=== PATIENT | female | born 1975 | race Caucasian/White ===

== ENCOUNTER → 2021-06-07 | Day surgery (SDC) | payer BC ==
[2021-06-06 11:12] LABS: BASOPHILS # (AUTO) 0.1 (0.0-0.1); BASOPHILS % 0.9 % (0.0-1.0); EOSINOPHILS # (AUTO) 0.1 (0.0-0.4); EOSINOPHILS % 2.4 % (0.0-6.0); HEMATOCRIT 36.2 % (34.2-44.1); HEMOGLOBIN 12.2 g/dL (12.0-16.0); LYMPHOCYTES # (AUTO) 2.3 (1.0-3.2); LYMPHOCYTES % 43.6 % (18.0-39.1); MEAN CORPUSCULAR HEMOGLOBIN 29.5 pg (28-32); MEAN CORPUSCULAR HGB CONC 33.7 g/dL (31-35); MEAN CORPUSCULAR VOLUME 87.4 fL (81-99); MONOCYTES # (AUTO) 0.4 (0.2-0.8); NEUTROPHILS # (AUTO) 2.4 (2.1-6.9); NEUTROPHILS % 44.7 % (38.7-80.0); PLATELET COUNT 193 x10e3/uL (140-360); RED BLOOD COUNT 4.14 x10e6/uL (3.6-5.1)
[~2021-06-07] MED LIST: AMITRIPTYLINE H25 MG PO; ATIVAN0.5 MG PO; CELEXA40 MG PO; CYMBALTA30 MG PO; FENTANYL CITRATE/PF 100MCG/2 ML INJ ONE; HYDROCODON-ACE1 EA12 PO; HYOSCYAMINE SULFATE 0.5 MG/ML INJ ONE; LIDOCAINE HCL 2% LOCAL INJ 5 ML SDV VIAL INJ ONE; LIDODERM PATCH1 EA TOP; LYRICA100 MG PO; LYRICA75 MG PO; METOPROLOL SUCC50 MG PO; MIACALCIN4 ML INH; MIDAZOLAM HCL 2 MG/2 ML VIAL ONE; MINIPRESS2 MG PO; PERIACTIN4 MG PO; PROPOFOL IV EMULSION 10 MG/ML 20 ML VIAL ONE; SEROQUEL100 MG PO; TIZANIDINE HCL4 M1 PO; TRINTELLIX PO; ULTRAM50 MG PO; VYVANSE30 MG PO; Z.0.AMBIEN10 MG PO; Z.0.ATIVAN1 MG PO; Z.0.BENTYL20 MG PO; Z.0.FOLIC ACID1 MG PO; Z.0.NORCO 7.5-3251 E PO; Z.0.PROTONIX40 MG PO; Z.0.VOLTAREN100 GM; Z.0.ZOFRAN8 MG PO; Z.1.METHOTREXATE2.5 PO; ZETIA10 MG PO; [UNRECOGNIZED DRUG - OTHER] IM
[2021-06-07 11:35] VITALS: BP 112/72
[2021-06-07 11:40] LABS: WBC,FECAL (FECAL LACTOFERRIN) NEGATIVE (NEGATIVE)
[2021-06-07 14:16] LABS: C DIFFICILE TOXIN A&B AMP PROB NEGATIVE (NEGATIVE)
[2021-06-11 06:11] LABS: ENDOMYSIAL ANTIBODIES, IGA Negative (Negative)
== END | disposition home or self-care (01) ==
LOC: OR 08:36
PROVIDERS: ATTEND Internal Medicine Gastroenterology
DX: K22.10 Ulcer of esophagus without bleeding (principal); K63.5 Polyp of colon; K29.70 Gastritis, unspecified, without bleeding; K57.30 Diverticulosis of large intestine without perforation or abscess without bleeding; K62.89 Other specified diseases of anus and rectum; K21.9 Gastro-esophageal reflux disease without esophagitis; K31.A0 Gastric intestinal metaplasia, unspecified; M06.9 Rheumatoid arthritis, unspecified; G89.29 Other chronic pain; M81.0 Age-related osteoporosis without current pathological fracture; R56.9 Unspecified convulsions; F41.9 Anxiety disorder, unspecified; F32.A Depression, unspecified; Z88.6 Allergy status to analgesic agent; Z88.1 Allergy status to other antibiotic agents; Z88.8 Allergy status to other drugs, medicaments and biological substances; Z01.812 Encounter for preprocedural laboratory examination; Z20.822 Contact with and (suspected) exposure to COVID-19; Z79.899 Other long term (current) drug therapy; Z68.36 Body mass index [BMI] 36.0-36.9, adult
CPT/HCPCS: 36415; 43239; 43450; 45380; 81025; 82784; 83516; 83630; 83993; 85025; 86256; 87045; 87177; 87328; 87493; C9113; J1980; J2001; J2250; J2704; J3010; U0002; 45378

== ENCOUNTER → 2022-02-14 | Outpatient (CLI) | payer BC ==
[~2022-02-14] MED LIST changes: -FENTANYL CITRATE/PF 100MCG/2 ML INJ ONE; -HYOSCYAMINE SULFATE 0.5 MG/ML INJ ONE; -LIDOCAINE HCL 2% LOCAL INJ 5 ML SDV VIAL INJ ONE; -MIDAZOLAM HCL 2 MG/2 ML VIAL ONE; -PROPOFOL IV EMULSION 10 MG/ML 20 ML VIAL ONE
== END ==
LOC: US 07:21
PROVIDERS: ATTEND Nurse Practitioner Adult Health
DX: R32 Unspecified urinary incontinence (principal)
CPT/HCPCS: 76770; 76857

== ENCOUNTER 2024-05-22 23:13 | Inpatient (IN) | payer BC ==
[~2024-05-22] VITALS: Ht 157.5 cm; Wt 83.9 kg
[2024-05-22 23:10] VITALS: BP 156/106; PULSE 134; RESP 20; TEMP 97.5; O2SAT 99
[~2024-05-22 23:13] MED LIST changes: +FEROSUL325 MG PO; +PANTOPRAZOLE SO40 MG PO; +ceftin PO
[2024-05-22 23:40] VITALS: BP 156/106; PULSE 134; RESP 20; TEMP 97.5; O2SAT 99
[2024-05-22] MEDS: Morphine 4mg INJECTION 4 MG/ML INJ IV PRN (23:55)
[2024-05-22] MEDS: ONDANSETRON HCL INJ 2MG/ML 2ML 2 MG/ML VIAL IV PRN (23:55)
[2024-05-22] MEDS: SODIUM CHLORIDE 0.9% 1000ML 1,000 ML IV SCH (23:55)
[2024-05-23] MEDS ORDERED: SUMATRIPTAN SUC25 MG PO (01:05)
[2024-05-23] MEDS ORDERED: JARDIANCE10 MG PO (01:05)
[2024-05-23] MEDS ORDERED: FENOFIBRATE134 MG PO (01:27)
[2024-05-23] MEDS ORDERED: TIZANIDINE HCL4 MG PO (01:27)
[2024-05-23] MEDS ORDERED: FARXIGA10 MG PO (01:27)
[2024-05-23] MEDS ORDERED: ATORVASTATIN CA20 MG PO (01:27)
[2024-05-23] MEDS ORDERED: HYDROXYCHLOROQ200 MG PO (01:27)
[2024-05-23] MEDS ORDERED: METFORMIN HCL1000 MG PO (01:27)
[2024-05-23] MEDS ORDERED: ZYPREXA5 MG PO (01:27)
[2024-05-23] MEDS ORDERED: FOLIC ACID0.4 MG PO (01:27)
[2024-05-23] MEDS ORDERED: AIMOVIG AU140 MG/1 M INJ (01:41)
[2024-05-23] MEDS ORDERED: HYDROXYZINE HCL25 MG PO (01:41)
[2024-05-23] MEDS ORDERED: METHOTREXATE2.5 MG PO (01:41)
[2024-05-23] MEDS: LACTATED RINGER'S 1,000 ML INJ SCH (01:46)
[2024-05-23 05:50] LABS: BASOPHILS # (AUTO) 0.1 (0.0-0.1); BASOPHILS % 0.5 % (0.0-1.0); EOSINOPHILS # (AUTO) 0.1 (0.0-0.4); EOSINOPHILS % 1.3 % (0.0-6.0); HEMATOCRIT 33.5 % (34.2-44.1); HEMOGLOBIN 10.6 g/dL (12.0-16.0); LYMPHOCYTES # (AUTO) 2.8 (1.0-3.2); LYMPHOCYTES % 27.8 % (18.0-39.1); MEAN CORPUSCULAR HEMOGLOBIN 28.3 pg (28-32); MEAN CORPUSCULAR HGB CONC 31.6 g/dL (31-35); MEAN CORPUSCULAR VOLUME 89.6 fL (81-99); MONOCYTES # (AUTO) 0.8 (0.2-0.8); MONOCYTES % 7.6 % (4.4-11.3); NEUTROPHILS # (AUTO) 6.3 (2.1-6.9); NEUTROPHILS % 62.1 % (38.7-80.0); PLATELET COUNT 234 x10e3/uL (140-360); RED BLOOD COUNT 3.74 x10e6/uL (3.6-5.1); RED CELL DISTRIBUTION WIDTH 12.6 % (11.7-14.4); WHITE BLOOD COUNT 10.08 x10e3/uL (4.8-10.8)
[2024-05-23 06:23] LABS: ALBUMIN 3.1 g/dL (3.5-5.0); ALBUMIN/GLOBULIN RATIO 1.2 (0.8-2.0); ANION GAP 14.7 mmol/L (8-16); BILIRUBIN,TOTAL 0.3 mg/dL (0.2-1.2); CALCIUM 8.5 mg/dL (8.4-10.2); CREATININE, SERUM 0.81 mg/dL (0.57-1.11); POTASSIUM 3.7 mmol/L (3.5-5.1); TOTAL PROTEIN 5.6 g/dL (6.5-8.1)
[2024-05-23 07:58] VITALS: BP 99/71; PULSE 109; RESP 18; TEMP 97.6; O2SAT 95
[2024-05-23 11:41] VITALS: BP 137/76; PULSE 116; RESP 17; TEMP 98.6; O2SAT 95
[2024-05-23] MEDS ORDERED: SIMETHICONE 80 MG CHEW PO PRN (13:00)
[2024-05-23] MEDS ORDERED: DOCUSATE SODIUM 100 MG CAP PO PRN (13:00)
[2024-05-23] MEDS ORDERED: ALBUTEROL/IPRATROPIUM 3 ML NEB NEB PRN (13:00)
[2024-05-23] MEDS ORDERED: MELATONIN 3 MG TAB PO PRN (13:00)
[2024-05-23 13:51] VITALS: PULSE 102; RESP 18; O2SAT 96
[2024-05-23 15:56] VITALS: BP 99/65; PULSE 107; RESP 19; TEMP 98.3; O2SAT 97
[2024-05-23] MEDS: DULOXETINE HCL 30 MG DELAYED RELEASE PO SCH (16:35)
[2024-05-23] MEDS: HYDROMORPHONE 1MG/1ML INJ IV PRN (16:46)
[2024-05-23] MEDS: PREGABALIN 50 MG CAP PO SCH (17:52)
[2024-05-23] MEDS: HYDROXYZINE HCL 25 MG TAB PO SCH (17:52)
[2024-05-23 20:00] VITALS: BP 142/82; PULSE 119; RESP 16; TEMP 97.3; O2SAT 96
[2024-05-23] MEDS: AMITRIPTYLINE HCL 25 MG TAB PO SCH (21:45)
[2024-05-23] MEDS: QUETIAPINE FUMARATE 100 MG TAB PO SCH (21:45)
[2024-05-23] MEDS: ATORVASTATIN 40 MG TAB PO SCH (21:45)
[2024-05-23] MEDS: TIZANIDINE HCL 4 MG TAB PO SCH (21:46)
[2024-05-24] VITALS (11 sets, daily range): BP systolic 84–171; BP diastolic 48–96; PULSE 90–125; RESP 16–20; TEMP 97.3–98.8; O2SAT 94–100
[2024-05-24 06:06] LABS: BASOPHILS % 0.6 % (0.0-1.0); EOSINOPHILS # (AUTO) 0.2 (0.0-0.4); EOSINOPHILS % 2.5 % (0.0-6.0); HEMATOCRIT 31.1 % (34.2-44.1); LYMPHOCYTES # (AUTO) 2.8 (1.0-3.2); LYMPHOCYTES % 38.7 % (18.0-39.1); MEAN CORPUSCULAR HEMOGLOBIN 28.2 pg (28-32); MEAN CORPUSCULAR HGB CONC 32.2 g/dL (31-35); MEAN CORPUSCULAR VOLUME 87.9 fL (81-99); MONOCYTES # (AUTO) 0.6 (0.2-0.8); MONOCYTES % 8.6 % (4.4-11.3); NEUTROPHILS # (AUTO) 3.6 (2.1-6.9); NEUTROPHILS % 49.2 % (38.7-80.0); PLATELET COUNT 208 x10e3/uL (140-360); RED BLOOD COUNT 3.54 x10e6/uL (3.6-5.1); RED CELL DISTRIBUTION WIDTH 12.8 % (11.7-14.4); WHITE BLOOD COUNT 7.23 x10e3/uL (4.8-10.8)
[2024-05-24 06:25] LABS: ANION GAP 17.9 mmol/L (8-16); CALCIUM 8.4 mg/dL (8.4-10.2); CREATININE, SERUM 0.7 mg/dL (0.57-1.11); POTASSIUM 3.9 mmol/L (3.5-5.1)
[2024-05-24] MEDS: ATORVASTATIN 20 MG TAB PO SCH (08:41)
[2024-05-24] MEDS: FERROUS SULFATE 325 MG TAB PO SCH (08:41)
[2024-05-24] MEDS: SENNOSIDES 8.6 MG TAB PO SCH (08:42)
[2024-05-24] MEDS: FENOFIBRATE 145 MG TAB PO SCH (08:42)
[2024-05-24] MEDS ORDERED: DEXTROSE 50% SYRINGE 50 ML IV PRN (19:15)
[2024-05-24] MEDS: METOPROLOL TARTRATE INJ 1 MG/ML VIAL IV PRN (20:58)
[2024-05-24] MEDS: INSULIN REGULAR, HUMAN 100 UNIT/1 ML SQ SCH (21:00)
[2024-05-25] VITALS (10 sets, daily range): BP systolic 121–161; BP diastolic 64–114; PULSE 91–118; RESP 16–19; TEMP 97.6–98.2; O2SAT 95–100
[2024-05-25] MEDS ORDERED: ATORVASTATIN CA20 MG PO (05:31)
[2024-05-25 06:42] LABS: BASOPHILS # (AUTO) 0.1 (0.0-0.1); BASOPHILS % 0.9 % (0.0-1.0); EOSINOPHILS # (AUTO) 0.3 (0.0-0.4); EOSINOPHILS % 4.3 % (0.0-6.0); HEMATOCRIT 30.5 % (34.2-44.1); LYMPHOCYTES # (AUTO) 2.9 (1.0-3.2); LYMPHOCYTES % 41.9 % (18.0-39.1); MEAN CORPUSCULAR HEMOGLOBIN 28.6 pg (28-32); MEAN CORPUSCULAR HGB CONC 32.8 g/dL (31-35); MEAN CORPUSCULAR VOLUME 87.1 fL (81-99); MONOCYTES # (AUTO) 0.6 (0.2-0.8); MONOCYTES % 8.3 % (4.4-11.3); NEUTROPHILS # (AUTO) 3.1 (2.1-6.9); PLATELET COUNT 225 x10e3/uL (140-360); RED CELL DISTRIBUTION WIDTH 12.9 % (11.7-14.4); WHITE BLOOD COUNT 6.99 x10e3/uL (4.8-10.8)
[2024-05-25 07:15] LABS: ANION GAP 15.4 mmol/L (8-16); BLOOD UREA NITROGEN < 5 mg/dL (7-26); CALCIUM 8.6 mg/dL (8.4-10.2); CARBON DIOXIDE 21 mmol/L (22-29); CHLORIDE 103 mmol/L (98-107); CREATININE, SERUM 0.71 mg/dL (0.57-1.11); EST GLOMERULAR FILTRATION RATE 105 ML/MIN (>=60); GLUCOSE 175 mg/dL (74-118); SODIUM 136 mmol/L (136-145)
[2024-05-25 07:18] LABS: BUN/CREATININE RATIO 7 (6-25); POTASSIUM 3.4 mmol/L (3.5-5.1)
[2024-05-26] VITALS (7 sets, daily range): BP systolic 104–155; BP diastolic 64–97; PULSE 86–108; RESP 18–20; TEMP 97.6–97.9; O2SAT 95–100
[2024-05-27] VITALS (9 sets, daily range): BP systolic 122–156; BP diastolic 84–98; PULSE 78–116; RESP 17–21; TEMP 97.4–98.9; O2SAT 93–100
[2024-05-27] MEDS: ONDANSETRON HCL INJ 2MG/ML 2ML 2 MG/ML VIAL IV PRN (15:28)
[2024-05-28] VITALS: BP 129/76; PULSE 85; RESP 18; TEMP 98.4; O2SAT 97
[2024-05-28 04:00] VITALS: BP 138/82; PULSE 92; RESP 18; TEMP 97.2; O2SAT 98
[2024-05-28] MEDS ORDERED: TYLENOL325 MG PO (06:08)
[2024-05-28 08:34] VITALS: BP 126/88; PULSE 91; RESP 18; TEMP 98; O2SAT 100
[2024-05-28 08:42] VITALS: PULSE 83; RESP 18; O2SAT 94
== END 2024-05-28 10:22 | disposition home or self-care (01) | DRG 439 ==
LOC: MED/SURG3 23:15
PROVIDERS: ADMIT Internal Medicine; ATTEND Internal Medicine
DX: K85.90 Acute pancreatitis without necrosis or infection, unspecified (principal); E87.1 Hypo-osmolality and hyponatremia; E86.0 Dehydration; K21.9 Gastro-esophageal reflux disease without esophagitis; E11.9 Type 2 diabetes mellitus without complications; Z79.4 Long term (current) use of insulin; E78.1 Pure hyperglyceridemia; K44.9 Diaphragmatic hernia without obstruction or gangrene; F90.9 Attention-deficit hyperactivity disorder, unspecified type; F41.8 Other specified anxiety disorders; M79.7 Fibromyalgia; I10 Essential (primary) hypertension; G47.00 Insomnia, unspecified; G25.81 Restless legs syndrome; E66.9 Obesity, unspecified; Z68.33 Body mass index [BMI] 33.0-33.9, adult
CPT/HCPCS: 36415; 80048; 80053; 82948; 83036; 83690; 84478; 85025; 86301; 94799; 99252; J1171; J2270; J2405; J2470; J3410; J7030

== ENCOUNTER 2024-07-21 14:59 | Emergency (ER) | payer BC ==
[~2024-07-21] VITALS: Ht 157.5 cm; Wt 79.8 kg
[~2024-07-21 14:59] MED LIST changes: -DEXAMETHASONE SOD PHOS INJ 4 MG/ML SDV ONE; -DEXMEDETOMIDINE HCL 0 ML ONE; -FENTANYL CITRATE/PF 100MCG/2 ML INJ ONE; -GLYCOPYRROLATE INJ 0.2 MG/ML VIAL ONE; -LACTATED RINGER'S 1,000 ML ONE; -LIDOCAINE HCL 2% LOCAL INJ 5 ML SDV VIAL INJ ONE; -NEOSTIGMINE 1 MG/ML 10ML VIAL ONE; -ONDANSETRON HCL INJ 2MG/ML 2ML 2 MG/ML VIAL ONE; -PROPOFOL IV EMULSION 10 MG/ML 20 ML VIAL ONE; -PROPOFOL IV EMULSION 50 ML IV ONE; -ROCURONIUM BROMIDE 1 ML IV ONE; -SUCCINYLCHOLINE CHLORIDE 20 MG/ML 10ML VIAL ONE
[2024-07-21 15:00] VITALS: TEMP 98.3
[2024-07-21] MEDS ORDERED: SODIUM CHLORIDE 0.9% 1000ML 1,000 ML IV STA (15:53)
[2024-07-21] MEDS ORDERED: DICYCLOMINE HCL 20 MG/2 ML VIAL IM ONE (16:00)
[2024-07-21 16:17] VITALS: PULSE 71; RESP 16; O2SAT 95
== END 2024-07-21 16:30 | disposition home or self-care (01) ==
LOC: ER 15:53
DX: G89.18 Other acute postprocedural pain (principal); E11.9 Type 2 diabetes mellitus without complications; R10.30 Lower abdominal pain, unspecified; K21.9 Gastro-esophageal reflux disease without esophagitis; M79.7 Fibromyalgia; F41.9 Anxiety disorder, unspecified; F32.A Depression, unspecified
CPT/HCPCS: 99283

== ENCOUNTER → 2024-07-21 | Day surgery (SDC) | payer BC ==
[~2024-07-21] MED LIST changes: +AIMOVIG AU140 MG/1 M INJ; +ATORVASTATIN CA20 MG PO; +DEXAMETHASONE SOD PHOS INJ 4 MG/ML SDV ONE; +DEXMEDETOMIDINE HCL 0 ML ONE; +FAMOTIDINE20 MG PO; +FARXIGA10 MG PO; +FENOFIBRATE134 MG PO; +FENTANYL CITRATE/PF 100MCG/2 ML INJ ONE; +FOLIC ACID0.4 MG PO; +GLYCOPYRROLATE INJ 0.2 MG/ML VIAL ONE; +HYDROXYCHLOROQ200 MG PO; +HYDROXYZINE HCL25 MG PO; +JARDIANCE10 MG PO; +LACTATED RINGER'S 1,000 ML ONE; +LIDOCAINE HCL 2% LOCAL INJ 5 ML SDV VIAL INJ ONE; +METFORMIN HCL1000 MG PO; +METHOTREXATE2.5 MG PO; +NEOSTIGMINE 1 MG/ML 10ML VIAL ONE; +ONDANSETRON HCL INJ 2MG/ML 2ML 2 MG/ML VIAL ONE; +PROPOFOL IV EMULSION 10 MG/ML 20 ML VIAL ONE; +PROPOFOL IV EMULSION 50 ML IV ONE; +ROCURONIUM BROMIDE 1 ML IV ONE; +SUCCINYLCHOLINE CHLORIDE 20 MG/ML 10ML VIAL ONE; +SUMATRIPTAN SUC25 MG PO; +TIZANIDINE HCL4 MG PO; +TOPAMAX100 MG PO; +TYLENOL325 MG PO; +ZYPREXA5 MG PO
[2024-07-21 12:40] VITALS: BP 122/65; PULSE 80; RESP 16; O2SAT 95
[2024-07-26 07:12] LABS: ENDOMYSIAL ANTIBODIES, IGA Negative (Negative)
[2024-07-26 15:11] LABS: IMMUNOGLOBULIN A 139 mg/dL (87-352); TISSUE TRANSGLUTAMINASE IGA AB <2 U/mL (0-3)
== END | disposition home or self-care (01) ==
LOC: OR 08:56
PROVIDERS: ATTEND Internal Medicine Gastroenterology
DX: K29.70 Gastritis, unspecified, without bleeding (principal); D12.5 Benign neoplasm of sigmoid colon; K31.7 Polyp of stomach and duodenum; K20.90 Esophagitis, unspecified without bleeding; K31.84 Gastroparesis; K31.A0 Gastric intestinal metaplasia, unspecified; K59.00 Constipation, unspecified; K21.9 Gastro-esophageal reflux disease without esophagitis; K57.30 Diverticulosis of large intestine without perforation or abscess without bleeding; K64.8 Other hemorrhoids; K85.90 Acute pancreatitis without necrosis or infection, unspecified; Z71.3 Dietary counseling and surveillance; D64.89 Other specified anemias; D50.8 Other iron deficiency anemias; I49.9 Cardiac arrhythmia, unspecified; E11.9 Type 2 diabetes mellitus without complications; G89.29 Other chronic pain; N20.0 Calculus of kidney; G40.909 Epilepsy, unspecified, not intractable, without status epilepticus; M81.0 Age-related osteoporosis without current pathological fracture; M06.9 Rheumatoid arthritis, unspecified; M19.90 Unspecified osteoarthritis, unspecified site; F41.9 Anxiety disorder, unspecified; F32.A Depression, unspecified; Z88.6 Allergy status to analgesic agent; Z88.1 Allergy status to other antibiotic agents; Z88.8 Allergy status to other drugs, medicaments and biological substances; Z91.048 Other nonmedicinal substance allergy status; Z79.84 Long term (current) use of oral hypoglycemic drugs; Z79.899 Other long term (current) drug therapy; Z68.32 Body mass index [BMI] 32.0-32.9, adult
CPT/HCPCS: 43239; 43450; 45385; 81025; 82784; 83516; 86256; J0330; J1100; J2003; J2405; J2470; J2704 ×2; J2710; J3010; J7121; 45378

== ENCOUNTER → 2024-09-14 | Outpatient (REF) | payer BC ==
[~2024-09-14] MED LIST changes: +ICOSAPENT ETHYL1 GM PO; +LANTUS 3ML100 UNITS/ SC
== END ==
LOC: NM 08:21
PROVIDERS: ATTEND Nurse Practitioner
DX: K31.84 Gastroparesis (principal)
CPT/HCPCS: 78264; A9541

== ENCOUNTER → 2024-09-26 | Day surgery (SDC) | payer BC ==
[2024-09-14 10:13] LABS: BASOPHILS # (AUTO) 0.1 (0.0-0.1); BASOPHILS % 1.2 % (0.0-1.0); EOSINOPHILS # (AUTO) 0.3 (0.0-0.4); EOSINOPHILS % 3.8 % (0.0-6.0); HEMATOCRIT 40.7 % (34.2-44.1); HEMOGLOBIN 13.2 g/dL (12.0-16.0); LYMPHOCYTES # (AUTO) 3.4 (1.0-3.2); LYMPHOCYTES % 45.9 % (18.0-39.1); MEAN CORPUSCULAR HEMOGLOBIN 28.1 pg (28-32); MEAN CORPUSCULAR HGB CONC 32.4 g/dL (31-35); MEAN CORPUSCULAR VOLUME 86.8 fL (81-99); MONOCYTES # (AUTO) 0.5 (0.2-0.8); MONOCYTES % 6.6 % (4.4-11.3); NEUTROPHILS # (AUTO) 3.1 (2.1-6.9); NEUTROPHILS % 42.2 % (38.7-80.0); PLATELET COUNT 287 x10e3/uL (140-360); RED BLOOD COUNT 4.69 x10e6/uL (3.6-5.1)
[~2024-09-26] MED LIST changes: +FAMOTIDINE 20 MG/2 ML VIAL IV ONE; +FENTANYL CITRATE/PF 100MCG/2 ML INJ ONE; +GLYCOPYRROLATE INJ 0.2 MG/ML VIAL ONE; +HYOSCYAMINE SULFATE 0.5 MG/ML INJ ONE; +KETOROLAC TROMETHAMINE 30 MG/ML VIAL ONE; +LIDOCAINE HCL 2% LOCAL INJ 5 ML SDV VIAL INJ ONE; +ONDANSETRON HCL INJ 2MG/ML 2ML 2 MG/ML VIAL ONE; +PROPOFOL IV EMULSION 50 ML IV ONE; +ROCURONIUM BROMIDE 1 ML IV ONE; +SUCCINYLCHOLINE CHLORIDE 20 MG/ML 10ML VIAL ONE
[2024-09-26] MEDS: LACTATED RINGER'S 1,000 ML ONE (06:50)
[2024-09-26 08:00] LABS: ANION GAP 17.8 mmol/L (8-16); CALCIUM 9.2 mg/dL (8.4-10.2); CREATININE, SERUM 0.87 mg/dL (0.57-1.11); POTASSIUM 3.8 mmol/L (3.5-5.1)
[2024-09-26 09:34] VITALS: TEMP 97.7
[2024-09-26] MEDS: ONDANSETRON HCL INJ 2MG/ML 2ML 2 MG/ML VIAL IV ONE (09:40)
[2024-09-26 09:55] VITALS: BP 150/84; PULSE 99; RESP 18; O2SAT 99
== END | disposition home or self-care (01) ==
LOC: OR 06:21
PROVIDERS: ATTEND Internal Medicine Gastroenterology
DX: Z09 Encounter for follow-up examination after completed treatment for conditions other than malignant neoplasm (principal); Z86.0100 Personal history of colon polyps, unspecified; K59.00 Constipation, unspecified; K57.92 Diverticulitis of intestine, part unspecified, without perforation or abscess without bleeding; K64.8 Other hemorrhoids; K27.9 Peptic ulcer, site unspecified, unspecified as acute or chronic, without hemorrhage or perforation; K21.9 Gastro-esophageal reflux disease without esophagitis; M19.90 Unspecified osteoarthritis, unspecified site; M06.9 Rheumatoid arthritis, unspecified; R00.0 Tachycardia, unspecified; E11.9 Type 2 diabetes mellitus without complications; D64.9 Anemia, unspecified; G89.29 Other chronic pain; G40.909 Epilepsy, unspecified, not intractable, without status epilepticus; F41.9 Anxiety disorder, unspecified; F32.A Depression, unspecified; Z88.6 Allergy status to analgesic agent; Z88.1 Allergy status to other antibiotic agents; Z88.8 Allergy status to other drugs, medicaments and biological substances; Z91.048 Other nonmedicinal substance allergy status; Z01.810 Encounter for preprocedural cardiovascular examination; Z01.812 Encounter for preprocedural laboratory examination; Z79.4 Long term (current) use of insulin; Z79.84 Long term (current) use of oral hypoglycemic drugs; Z79.899 Other long term (current) drug therapy
CPT/HCPCS: 36415 ×2; 45330; 80048; 81025; 82948; 85025; 93005; J0330; J1885; J1980; J2003; J2405; J2704; J3010; J7121; 45378; J1308